=== PATIENT | female | born 1975 | race Hispanic/Latino ===

== ENCOUNTER 2022-01-06 12:47 | Emergency (ER) | payer OTHER ==
[~2022-01-06] VITALS: Ht 170.2 cm; Wt 59.0 kg
[~2022-01-06 12:47] MED LIST: IVER3TAB PO
[2022-01-06] MEDS ORDERED: IBUPROFEN 600 MG TABLET PO ONE (13:30)
[2022-01-06] MEDS ORDERED: DICYCLOMINE HCL 20 MG TAB PO SCH (13:30)
[2022-01-06] MEDS ORDERED: IBUP-2070 PO (14:18)
[2022-01-06] MEDS ORDERED: DICY10 PO (14:18)
[2022-01-06 15:06] VITALS: BP 102/65
== END 2022-01-06 15:08 | disposition home or self-care (01) ==
LOC: EDH 12:47
DX: B34.9 Viral infection, unspecified (principal); Z20.822 Contact with and (suspected) exposure to COVID-19; Z86.16 Personal history of COVID-19; Z79.1 Long term (current) use of non-steroidal anti-inflammatories (NSAID)
CPT/HCPCS: 87635; 99283; C9803